=== PATIENT | male | born 1950 | race Hispanic/Latino ===

== ENCOUNTER → 2022-09-08 | Outpatient (CLI) | payer OTHER ==
[2022-09-08 12:22] LABS: CREATININE 0.8 mg/dL (0.5-1.5)
== END | disposition home or self-care (01) ==
LOC: LAB 11:27
PROVIDERS: ATTEND Otolaryngology Plastic Surgery within the Head & Neck
DX: H90.3 Sensorineural hearing loss, bilateral (principal)
CPT/HCPCS: 36415; 82565; 84520

== ENCOUNTER → 2022-09-20 | Outpatient (CLI) | payer OTHER ==
[~2022-09-20] MED LIST: GADOTERATE MEGLUMINE 10 MMOL/20 ML VIAL IV ONE
== END | disposition home or self-care (01) ==
LOC: RAH 10:00
PROVIDERS: ATTEND Otolaryngology Plastic Surgery within the Head & Neck
DX: H90.3 Sensorineural hearing loss, bilateral (principal)
CPT/HCPCS: 70553; A9575

== ENCOUNTER → 2025-03-26 | Outpatient (CLI) | payer OTHER ==
[~2025-03-26] MED LIST changes: -GADOTERATE MEGLUMINE 10 MMOL/20 ML VIAL IV ONE; +IOHEXOL-350 75 ML VIAL IV ONE
--- NOTE | 2025-03-26 14:15 | HMCIMG ---
EXAM: CT BRAIN WITHOUT AND WITH INTRAVENOUS CONTRAST Technique: Axial computed tomography of the head with coronal and sagittal reformations; dose-reduction techniques applied. CTDIvol: 98.60 mGy; DLP: 1743.20 mGy???cm. Contrast: Standard dose of intravenous contrast administered. Clinical Information: Syncope and collapse. Findings: Brain: Cosby???white matter differentiation is preserved without acute intra- axial hemorrhage or territorial infarct; patchy hypodensities in the bilateral periventricular and subcortical white matter are most compatible with chronic small vessel ischemic change. Ventricles and extra-axial spaces: Ventricular size and configuration are within expected limits without midline shift; prominence of sulci, basal cisterns, and Sylvian fissures is consistent with age-related parenchymal volume loss; no extra-axial fluid collection. Post-contrast brain: No abnormal parenchymal or leptomeningeal enhancement. Skull and extracranial soft tissues: Calvarium and skull base are intact; extracranial soft tissues are unremarkable. Orbits: Globes and intraorbital contents are unremarkable. Paranasal sinuses and mastoid air cells: Visualized paranasal sinuses are clear; mastoid air cells are clear. IMPRESSION: 1. No acute intracranial abnormality, including absence of acute intra-axial hemorrhage or territorial infarct. 2. Chronic microangiopathic white matter changes, manifesting as patchy hypodensities in the bilateral periventricular and subcortical white matter. 3. Age-related parenchymal volume loss, evidenced by prominence of sulci, basal cisterns, and Sylvian fissures. 4. No abnormal parenchymal or leptomeningeal enhancement on post-contrast images. 5. Intact calvarium and skull base. 6. Clear paranasal sinuses and mastoid air cells. /[place]
== END | disposition home or self-care (01) ==
LOC: RAH 09:46
PROVIDERS: ATTEND Family Medicine
DX: G98.8 Other disorders of nervous system (principal); R55 Syncope and collapse; R42 Dizziness and giddiness
CPT/HCPCS: 70470; Q9967